=== PATIENT | male | born 1980 | race Caucasian/White ===

== ENCOUNTER 2018-05-06 16:39 | Emergency (ER) | payer OTHER, BC ==
[2018-05-06 16:45] VITALS: BP 140/95
[2018-05-06] MEDS ORDERED: DIPH/PERTUSS(ACELL)/TETANUS VAC/PF 0.5 ML SYR (>=10YO) IM ONE (17:20)
--- NOTE | 2018-05-06 17:20 | ER Document Report ---
HPI - HPI Pain Level: 3 Notes: Patient is a 37-year-old male no significant past medical history presents to the ED complaining of an avulsion skin laceration to his left lateral index finger distally by a paper products printer prior to arrival. Patient states that he was able to control the bleeding. Patient states that he was seen at urgent care who did do a digital block, but sent him here for further evaluation. He is unsure of his last tetanus. Patient states that he is able to move his finger without any difficulties otherwise. Denies any drug allergies. Denies any headache, fever, URI, sore throat, chest pain, palpitations, syncope, cough, shortness of breath, wheeze, dyspnea, abdominal pain, nausea/vomiting/diarrhea, numbness/tingling, muscle paralysis/weakness, or rash. - ROS Systems Reviewed and Negative: Yes All other systems reviewed and negative - CONSTITUTIONAL Constitutional: DENIES: Fever, Chills - EENT EENT: DENIES: Sore Throat, Ear Pain, Eye problems - NEURO Neurology: DENIES: Headache, Weakness, Vision blurred, Dizzinesss / Vertigo - CARDIOVASCULAR Cardiovascular: DENIES: Chest pain - RESPIRATORY Respiratory: DENIES: Trouble Breathing, Coughing - GASTROINTESTINAL Gastrointestinal: DENIES: Abdominal Pain, Black / Bloody Stools - URINARY Urinary: DENIES: Dysuria, Urgency, Frequency - MUSCULOSKELETAL Musculoskeletal: REPORTS: Extremity pain - LEFT 2ND FINGER Past Medical History - Social History Smoking Status: Never Smoker Chew tobacco use (# tins/day): No Frequency of alcohol use: Occasional Drug Abuse: None Family History: Reviewed & Not Pertinent Patient has suicidal ideation: No Patient has homicidal ideation: No Renal/ Medical History: Denies: Hx Peritoneal Dialysis Past Surgical History: Reports: Hx Orthopedic Surgery - RIGHT KNEE Vertical Provider Document - CONSTITUTIONAL Agree With Documented VS: Yes Notes: PHYSICAL EXAMINATION: GENERAL: Well-appearing, well-nourished and in no acute distress. LUNGS: Breath sounds clear to auscultation bilaterally and equal. No wheezes rales or rhonchi. HEART: Regular rate and rhythm without murmurs, rubs, gallops. Musculoskeletal: Lt index finger: FROM to passive/active. Strength 5+/5. N/V intact distal. No bony tenderness. Extremities: No cyanosis, clubbing, or edema b/l. Peripheral pulses 2+. Capillary refill less than 3 seconds. NEUROLOGICAL: Normal speech, normal gait. Normal sensory, motor exams PSYCH: Normal mood, normal affect. SKIN: Lt index finger: there is a skin avulsion laceration, very superficial, w /o active bleeding noted. No streaks, purulence, or abscess. - INFECTION CONTROL TRAVEL OUTSIDE OF THE [place] IN LAST 30 DAYS: No Course - Re-evaluation Re-evalutation: 05/06/18 17:20 Patient is an afebrile, well-hydrated, 37-year-old male who presents to the ED with a superficial skin avulsion injury to the left distal lateral index finger. Vitals are acceptable without any significant tachycardia, tachypnea, or hypoxia. PE is otherwise unremarkable for any neurovascular compromise, obvious tendon/ligament rupture, obvious fracture/dislocation, septic joint, foreign body. No labs or imaging warranted at this time based on H&P. Tetanus was given today. Wound was thoroughly irrigated and cleansed. Wound dressing was placed and wound instructions reviewed. I will send him home with a prescription for Keflex. Recheck with your PCM in 3-5 days. Consider consult orthopedics if needed. Return to the ED with any worsening/concerning symptoms otherwise as reviewed in discharge. Patient is in agreement. - Vital Signs Vital signs: Temp Pulse Resp BP Pulse Ox 97.7 F 68 16 140/95 H 100 05/06/18 16:43 05/06/18 16:43 05/06/18 16:43 05/06/18 16:43 05/06/18 16:43 Discharge - Discharge Clinical Impression: Avulsion of skin of finger Qualifiers: Encounter type: initial encounter Qualified Code(s): S61.209A - Unspecified open wound of unspecified finger without damage to nail, initial encounter Condition: Stable Disposition: HOME, SELF-CARE Additional Instructions: Keep the skin clean Wash with soap and water, do not scrub Tylenol/ibuprofen if needed Triple antibiotic ointment daily x2-3 days Take medication as directed Monitor for any worsening symptoms Recheck with your PCM in 3-5 days Consider consult with Orthopedics for ongoing/worsening symptoms Return to the ED with any worsening symptoms and/or development of fever, headache, chest pain, palpitations, syncope, shortness of breath, trouble breathing, abdominal pain, n/v/d, abscess, purulent discharge, red streaks, worsening swelling, or other worsening symptoms that are concerning to you. Prescriptions: Cephalexin Monohydrate [Keflex 500 mg Capsule] 500 mg PO BID #14 capsule Forms: Elevated Blood Pressure Referrals: [facility] [Provider Group] - Follow up as needed
== END 2018-05-06 17:47 | disposition home or self-care (01) ==
LOC: ER 16:39
DX: S61.211A Laceration without foreign body of left index finger without damage to nail, initial encounter (principal); W45.8XXA Other foreign body or object entering through skin, initial encounter; Y99.0 Civilian activity done for income or pay; Z23 Encounter for immunization
CPT/HCPCS: 90471; 90715; 99283